=== PATIENT | male | born 1950 | race Caucasian/White ===

== ENCOUNTER 2022-05-15 06:21 | Outpatient (CLI) | payer BC ==
[~2022-05-15 06:21] MED LIST: AMLO-250 PO; ASPI-586 PO; AZIT250T12 PO; B12 PO; D3 PO; FISH1CAP15 PO; GLBR5T PO; HYDR-3729 PO; LEVO25TA5 PO; LISI20TA26 PO; MAGN400T39 PO; METF-397 PO; METO-351 PO; MULTIVITAMIN; POTA2TAB15 PO; ROSU5TAB PO; SULI200T4 PO; UBID100C17 PO
[2022-05-16] MEDS ORDERED: METF-397 PO (09:26)
[2022-05-16] MEDS ORDERED: AMLO-251 PO (09:26)
[2022-05-16] MEDS ORDERED: HYDR25TA4 PO (09:26)
[2022-05-16] MEDS ORDERED: LISI40TA9 PO (09:26)
[2022-05-16] MEDS ORDERED: TR1C15 TP (09:26)
== END 2022-05-16 09:28 | disposition home or self-care (01) ==
LOC: PREOP 06:21
PROVIDERS: ATTEND Surgery
DX: Z01.818 Encounter for other preprocedural examination (principal)

== ENCOUNTER 2022-05-28 08:36 | Day surgery (SDC) | payer BC, MEDICARE ==
[~2022-05-28] VITALS: Ht 175.3 cm; Wt 102.5 kg
[~2022-05-28 08:36] MED LIST changes: +AMLO-251 PO; +HYDR25TA4 PO; +LISI40TA9 PO; +TR1C15 TP
[2022-05-28] MEDS ORDERED: LACTATED RINGERS 1,000 ML IV STA (08:48)
[2022-05-28 09:25] VITALS: BP 170/100
[2022-05-28] MEDS ORDERED: PROPOFOL INJECTION 50 ML IV ONE ×2 (12:02→12:55)
[2022-05-28 13:10] VITALS: BP 123/77
--- NOTE | 2022-05-28 13:11 | Progress Note-Post Operative ---
Post-Operative Progess Note Surgeon (s)/Drop Wire Hanger (s) Surgeon RADHA BEAN DO Drop Wire Hanger: na Pre-Operative Diagnosis positive cologuard Post-Operative Diagnosis colon polyps, diverticulosis, internal hemorrhoids Procedure & Operative Findings Date of Procedure 05/28/22 Procedure Performed/Findings colonoscopy with snare polypectomy x1 Anesthesia Type per delivery table operator Estimated Blood Loss Estimated blood loss (mL): none Specimens/Packing Specimens Removed colon polypectomy x1 RADHA BEAN DO May 28, 2022 13:11
--- NOTE | 2022-05-28 13:12 | Discharge Inst-Simple/Standard ---
Discharge Inst-Standard Reconcile Patient Problems Problems Reviewed?: Yes Patient Instructions/Follow Up Plan of Care/Instructions/FU: follow up with Dr. Elmore in 2 weeks Activity as Tolerated: Yes Discharge Diet: Regular Diet (high fiber diet) RADHA ELMORE DO May 28, 2022 13:12
[2022-05-28 13:15] VITALS: BP 129/78
[2022-05-28 13:30] VITALS: BP 149/83
[2022-05-28 13:37] VITALS: BP 149/83
--- NOTE | 2022-05-28 14:57 | Anesthesia-General Post-Op ---
MAC Patient Condition Mental Status/LOC: Same as Preop Cardiovascular: Satisfactory Nausea/Vomiting: Absent Respiratory: Satisfactory Pain: Controlled Complications: Absent Post Op Complications Complications None Follow Up Care/Instructions Patient Instructions None needed. Anesthesiology Discharge Order Discharge Order Patient is doing well, no complaints, stable vital signs, no apparent adverse anesthesia problems. No complications reported per nursing. SHAYNE MAURICIO CRNA May 28, 2022 14:57
--- NOTE | 2022-05-28 21:00 | OPERATIVE REPORT ---
DATE OF SERVICE: 05/28/2022 PREOPERATIVE DIAGNOSIS: Positive Cologuard. POSTOPERATIVE DIAGNOSES: Diverticulosis, internal hemorrhoid, descending colon polyp. PROCEDURE: Colonoscopy with snare polypectomy x1. SURGEON: Radha Elmore DO ANESTHESIA: Per [employer]. ESTIMATED BLOOD LOSS: None. COMPLICATIONS: None. INDICATIONS: The patient is a 71-year-old male with positive Cologuard. He understands risks and benefits of procedure and wishes to proceed. Consent was signed in the chart. DESCRIPTION OF PROCEDURE: The patient was taken to endoscopy suite, placed in left lateral recumbent position. Timeout was performed. Digital rectal exam was performed. No palpable polyps, masses or ulcerations. Scope was inserted in the rectum and advanced all the way to cecum with minimal difficulty. Prep was adequate. Scope was then slowly retracted back. No polyps, masses or ulcerations within the cecum, ascending, transverse colon. In the descending colon, polyp was present, which snare polypectomy was performed. This was obtained for pathology. Scope was then continuously retracted back through the sigmoid colon, noting diverticulosis. Scope was continuously retracted back in the rectum, it was also retroflexed noting internal hemorrhoid. Scope was returned to its normal position, slowly withdrawn until completely removed. The patient tolerated procedure well without any complications and was taken to recovery room in stable condition. RECOMMENDATIONS: The patient will need repeat colonoscopy in 5 years. Any issues before that be seen at that time. Recommend high fiber diet due to diverticulosis. The patient will follow up on pathology in 2 weeks. Job ID: [id number] DocumentID: [id number] Dictated Date: 05/28/2022 13:09:47 Reconciling Clerk Date: 05/28/2022 20:59:03 Dictated By: RADHA ELMORE DO
== END 2022-05-28 13:00 | disposition home or self-care (01) ==
LOC: ENDO 08:36
PROVIDERS: ATTEND Surgery
DX: K63.5 Polyp of colon (principal); K57.30 Diverticulosis of large intestine without perforation or abscess without bleeding; K64.8 Other hemorrhoids; Z87.891 Personal history of nicotine dependence; E66.9 Obesity, unspecified; Z68.33 Body mass index [BMI] 33.0-33.9, adult; D22.62 Melanocytic nevi of left upper limb, including shoulder; E11.9 Type 2 diabetes mellitus without complications; Z79.84 Long term (current) use of oral hypoglycemic drugs